=== PATIENT | male | born 1960 | race Caucasian/White ===

== ENCOUNTER 2023-02-27 12:58 | Inpatient (IN) | payer OTHER, SELFPAY ==
[~2023-02-27 12:58] MED LIST: Iopamidol-370 76% 500 ML MDV (1 ML CHARGE) ONE
[2023-02-27 13:26] LABS: #Basophils 0.1 thou/uL (0.0-0.2); #Monocytes 1.3 thou/uL (0.11-0.59); #Neutrophils 17.5 thou/uL (1.40-6.50); %Basophils 0.4 % (0.0-1.0); %Eosinophils 0.2 % (0.0-10.0); %Lymphocytes 5.6 % (21.0-51.0); %Monocytes 6.4 % (0.0-10.0); %Neutrophils 86.8 % (42.0-75.0); Hemoglobin 15.8 g/dL (14.0-18.0); Mean Corpuscular Hemoglobin 29.3 pg (27.0-31.0); Mean Corpuscular Volume 86.3 fl (78.0-98.0); Mean Platelet Volume 10.3 fL (7.4-10.4); Platelet Count 245 10x3/uL (130-400); RBC Distribution Width 13.2 % (11.5-14.5); Red Blood Cell (RBC) Count 5.39 mill/uL (4.70-6.10); White Blood Cell (WBC) Count 20.1 10x3/uL (4.8-10.8)
[2023-02-27 13:51] LABS: ALT (SGPT) 39 U/L (8-55); AST (SGOT) 37 U/L (5-34); Albumin 4.1 g/dL (3.4-4.8); Alkaline Phosphatase 76 U/L (40-110); Anion Gap 11 mmol/L (10-20); BUN (Urea Nitrogen) 14 mg/dL (8.4-25.7); Bilirubin, Total 0.7 mg/dL (0.2-1.2); CK (CPK) 851 U/L (30-200); Calc. Creatinine Clearance 0 mL/min (70-130); Calcium 8.8 mg/dL (7.8-10.44); Carbon Dioxide 24 mmol/L (23-31); Chloride 112 mmol/L (98-107); Estimated GFR 62; Globulin 2.5 g/dL (2.4-3.5); Glucose 132 mg/dL (80-115); Lipase 22 U/L (8-78); Potassium 3.7 mmol/L (3.5-5.1); Protein, Total 6.6 g/dL (5.8-8.1); Sodium 143 mmol/L (136-145)
[2023-02-27] MEDS ORDERED: Morphine 4 MG/ML VIAL ONE (13:59)
[2023-02-27] MEDS ORDERED: CEFAZOLIN 2 GM VIAL ONE (14:00)
[2023-02-27] MEDS ORDERED: Boostrix 0.5 ML (Tdap) VIAL (>/=7 yrs of age) ONE (14:00)
[2023-02-27] MEDS ORDERED: Morphine 2 MG/ML VIAL SLOW IVP PRN (14:42)
[2023-02-27] MEDS ORDERED: Ondansetron PF 4 MG/2 ML Vial IVP PRN (14:42)
[2023-02-27] MEDS ORDERED: hydrALAZINE 20 MG/ML VIAL SLOW IVP PRN (14:42)
[2023-02-27] MEDS ORDERED: Ipratropium/Albuterol 3 ML NEB NEB PRN (14:42)
[2023-02-27] MEDS ORDERED: Ketorolac Tromethamine 30 MG/ML VIAL IVP SCH (16:00)
[2023-02-27] MEDS: traMADol HCl 50 MG TAB PO SCH ×2 (16:55→23:15)
[2023-02-27] MEDS: Acetaminophen 500 MG TAB PO SCH ×2 (16:55→23:13)
[2023-02-27] MEDS: Sodium Chloride 0.9% 1,000 ML IV SCH ×2 (16:56→22:03)
[2023-02-27] MEDS: traMADol HCl 50 MG TAB PO PRN (16:56)
[2023-02-27 18:49] VITALS: BMI 26.4
[2023-02-27] MEDS: Gabapentin 300 MG CAP PO SCH (20:45)
[2023-02-27] MEDS: Famotidine/PF 20 mg/2ml Vial SLOW IVP SCH (20:46)
[2023-02-27] MEDS: Ketorolac Tromethamine 30 MG/ML VIAL IVP SCH (23:15)
[2023-02-28] MEDS: Acetaminophen 500 MG TAB PO SCH ×3 (05:07→17:30)
[2023-02-28] MEDS: traMADol HCl 50 MG TAB PO SCH ×3 (05:09→17:30)
[2023-02-28] MEDS: Ketorolac Tromethamine 30 MG/ML VIAL IVP SCH (05:10)
[2023-02-28] MEDS: Sodium Chloride 0.9% 1,000 ML IV SCH ×3 (05:11→17:31)
[2023-02-28 06:59] LABS: #Basophils 0.1 thou/uL (0.0-0.2); #Eosinphils 0.3 thou/uL (0.0-0.7); #Monocytes 0.8 thou/uL (0.11-0.59); #Neutrophils 5.9 thou/uL (1.40-6.50); %Basophils 0.8 % (0.0-1.0); %Eosinophils 2.8 % (0.0-10.0); %Lymphocytes 21.1 % (21.0-51.0); %Monocytes 9.2 % (0.0-10.0); %Neutrophils 65.7 % (42.0-75.0); Mean Corpuscular HGB CONC 34.1 g/dL (32.0-36.0); Mean Corpuscular Hemoglobin 29.9 pg (27.0-31.0); Mean Corpuscular Volume 87.7 fl (78.0-98.0); Mean Platelet Volume 10.4 fL (7.4-10.4); Platelet Count 190 10x3/uL (130-400); RBC Distribution Width 13.5 % (11.5-14.5); Red Blood Cell (RBC) Count 4.22 mill/uL (4.70-6.10)
[2023-02-28 07:15] LABS: Anion Gap 12 mmol/L (10-20); BUN (Urea Nitrogen) 14 mg/dL (8.4-25.7); Calc. Creatinine Clearance 108 mL/min (70-130); Calcium 7.6 mg/dL (7.8-10.44); Carbon Dioxide 23 mmol/L (23-31); Chloride 106 mmol/L (98-107); Estimated GFR 98; Glucose 89 mg/dL (80-115); Potassium 3.7 mmol/L (3.5-5.1); Sodium 137 mmol/L (136-145)
[2023-02-28 07:18] LABS: Hemoglobin 12.6 g/dL (14.0-18.0)
[2023-02-28 07:52] LABS: CK (CPK) 5581 U/L (30-200)
[2023-02-28] MEDS: Gabapentin 300 MG CAP PO SCH ×3 (08:58→21:09)
[2023-02-28] MEDS: Famotidine/PF 20 mg/2ml Vial SLOW IVP SCH (08:59)
[2023-02-28] MEDS: Famotidine 20 MG TAB PO SCH ×2 (09:00→21:09)
[2023-02-28] MEDS ORDERED: Aspirin 325 mg Enteric Coated Tablet PO SCH (11:45)
[2023-02-28] MEDS: Cyclobenzaprine 10 MG TAB PO PRN (21:10)
[2023-02-28] MEDS: traMADol HCl 50 MG TAB PO PRN (21:10)
[2023-03-01] MEDS: Acetaminophen 500 MG TAB PO SCH ×3 (00:11→13:37)
[2023-03-01] MEDS: traMADol HCl 50 MG TAB PO SCH ×3 (00:13→13:36)
[2023-03-01] MEDS: Sodium Chloride 0.9% 1,000 ML IV SCH ×3 (00:14→14:06)
[2023-03-01 05:33] LABS: #Basophils 0.1 thou/uL (0.0-0.2); #Eosinphils 0.4 thou/uL (0.0-0.7); #Monocytes 0.7 thou/uL (0.11-0.59); #Neutrophils 5.7 thou/uL (1.40-6.50); %Basophils 0.8 % (0.0-1.0); %Eosinophils 4.9 % (0.0-10.0); %Lymphocytes 21.3 % (21.0-51.0); %Monocytes 8.3 % (0.0-10.0); %Neutrophils 64.5 % (42.0-75.0); Hemoglobin 12.2 g/dL (14.0-18.0); Mean Corpuscular HGB CONC 33.5 g/dL (32.0-36.0); Mean Corpuscular Hemoglobin 29.2 pg (27.0-31.0); Mean Corpuscular Volume 87.1 fl (78.0-98.0); Mean Platelet Volume 10.6 fL (7.4-10.4); Platelet Count 184 10x3/uL (130-400); RBC Distribution Width 13.5 % (11.5-14.5); Red Blood Cell (RBC) Count 4.18 mill/uL (4.70-6.10); White Blood Cell (WBC) Count 8.8 10x3/uL (4.8-10.8)
[2023-03-01 05:56] LABS: Anion Gap 10 mmol/L (10-20); BUN (Urea Nitrogen) 8 mg/dL (8.4-25.7); CK (CPK) 3902 U/L (30-200); Calc. Creatinine Clearance 117 mL/min (70-130); Calcium 7.9 mg/dL (7.8-10.44); Carbon Dioxide 23 mmol/L (23-31); Chloride 110 mmol/L (98-107); Estimated GFR 100; Glucose 94 mg/dL (80-115); Potassium 3.9 mmol/L (3.5-5.1); Sodium 139 mmol/L (136-145)
[2023-03-01] MEDS: Cyclobenzaprine 10 MG TAB PO PRN (08:53)
[2023-03-01] MEDS: Famotidine 20 MG TAB PO SCH (08:53)
[2023-03-01] MEDS: Gabapentin 300 MG CAP PO SCH (08:53)
[2023-03-01] MEDS ORDERED: Aspirin 325 MG TAB PO SCH (09:00)
[2023-03-01 11:53] VITALS: BP 135/82; TEMP 98.5
== END 2023-03-01 15:44 | disposition home or self-care (01) | DRG 551 ==
LOC: ERS 12:58 → SJJU 14:46 → OBSVTOIN 02-28 12:13
PROVIDERS: ADMIT Surgery; ATTEND Surgery
DX: S12.500A Unspecified displaced fracture of sixth cervical vertebra, initial encounter for closed fracture (principal); I77.79 Dissection of other specified artery; S22.21XA Fracture of manubrium, initial encounter for closed fracture; S22.41XA Multiple fractures of ribs, right side, initial encounter for closed fracture; S02.2XXA Fracture of nasal bones, initial encounter for closed fracture; T79.6XXA Traumatic ischemia of muscle, initial encounter; S42.002A Fracture of unspecified part of left clavicle, initial encounter for closed fracture; S42.102A Fracture of unspecified part of scapula, left shoulder, initial encounter for closed fracture; V89.0XXA Person injured in unspecified motor-vehicle accident, nontraffic, initial encounter; Y92.89 Other specified places as the place of occurrence of the external cause
CPT/HCPCS: 36415; 70450; 70498; 71045; 71260; 72125; 74177; 80048; 80053; 82550; 83690; 84484; 85025; 90471; 90715; 93005; 96365; 96375; 96376; G0378; G0390; J1885; J2270; J7050; Q9967; S0028